=== PATIENT | female | born 1950 | race Caucasian/White ===

== ENCOUNTER 2018-09-10 10:12 | Emergency (ER) | payer BC, MEDICARE, OTHER ==
[2018-09-10 10:28] VITALS: O2SAT 98
[2018-09-10] MEDS ORDERED: MORPHINE SULFATE 4 MG INJ IV ONE (10:41)
[2018-09-10] MEDS ORDERED: Zofran 4 MG/2 ML VIAL IV ONE (10:41)
--- NOTE | 2018-09-10 10:45 | ERPHSYRPT ---
- History of Present Illness Time Seen by Provider: 09/10/18 10:37 Source: patient Exam Limitations: no limitations Patient Subjective Stated Complaint: "I SLIPPED ON THE ICE AND NOW MY LEFT SHOULDER HURTS AND I CAN'T MOVE MY LEFT ARM RIGHT" Triage Nursing Assessment: PINK/WARM/DRY, RESP EASY, A&OX4, STEADY GAIT, LIMITED ROM TO LEFT ARM AND DEFORMITY NOTED. Physician History: 68-year-old white female arrives with complaint of pain in her left upper arm and the left shoulder since falling 1 hour prior to arrival. Patient states she slipped on the ice. She denies any other complaints past medical history includes cataracts, diabetes type 2, hypothyroidism, arrhythmia, coronary artery disease, hypercholesterolemia, high blood pressure, myocardial infarction, GERD, GI bleed , renal disease, anxiety, depression, osteopenia, anemia, GI bleed, skin cancer with radiation treatment. Past surgical history includes cataracts, CABG, cardiac stent, appendectomy, hernia repair, tubal ligation, colonoscopy Occurred: this morning (1 hour ago) Method of Injury: fell (slipped on ice) Extremities Pain Location: shoulder: left, arm: left Modifying Factors: Improves With: nothing Associated Symptoms: none Allergies/Adverse Reactions: Penicillins Allergy (Mild, Verified 09/10/18 10:28) Hives Home Medications: Atorvastatin Calcium [Lipitor] 40 mg PO DAILY 02/06/14 [History] Ca/D3/Mag Ox/Zinc/Supervisor Record Press/Adolfo/Bor [Calcium 600+D3 Plus Caplet] 1 each PO BID [History] Krill/Om3/Dha/Epa/Om6/Lip/Astx [Krill Oil 1,000 mg Softgel] 1 each PO DAILY [History] Multivitamins-Min/FA/Ginkgo [Women's 50+ Daily Formula Tab] 1 each PO DAILY [History] Bupropion HCl 150 mg Sr [Wellbutrin SR 150 MG] 1 tab PO DAILY 12/23/15 [ History] Nitroglycerin 0.4 mg (Ed) [Nitrostat 0.4 MG (ED)] 1 tab SL UD 06/24/16 [ History] Darbepoetin Horace 60 Mcg [Aranesp 60 Mcg Syringe] 60 mcg IJ DIRECTIONS UNKNOWN 09/06/16 [History] Allopurinol 100 mg [Zyloprim 100 mg] 100 mg PO DAILY 05/16/17 [History] Diltiazem HCl [Cartia Xt] 120 mg PO BID 05/16/17 [History] Gabapentin [Neurontin] 300 mg PO HS 05/16/17 [History] Ascorbic Acid [Vitamin C] 1,000 mg PO DAILY 10/18/17 [History] Aspirin EC 81 mg [Ecotrin 81 mg] 81 mg PO DAILY 10/18/17 [History] Enalapril Maleate 10 mg [Vasotec 10 MG] 2.5 mg PO DAILY 10/18/17 [History] Famotidine 20 mg [Pepcid 20 MG] 20 mg PO BID 10/18/17 [History] Insulin Aspart [Novolog Flexpen] 0 unit SQ UD 10/18/17 [History] Isosorbide Mononitrate 30 mg [Imdur 30 MG] 30 mg PO DAILY 10/18/17 [History ] Insulin Glargine [Lantus Insulin] 20 unit SQ QHS 03/13/18 [History] Levothyroxine Sodium 88 Mcg [Synthroid 88 Mcg] 88 mcg PO DAILY 03/13/18 [ History] HydrALAzine HCL 25 MG TAB [Apresoline 25 MG TABLET] 50 mg PO TID 07/04/18 [History] Hx Tetanus, Diphtheria Vaccination/Date Given: Yes Hx Influenza Vaccination/Date Given: Yes Hx Pneumococcal Vaccination/Date Given: Yes Immunizations Up to Date: Yes - Review of Systems Constitutional: No Fever, No Chills Eyes: No Symptoms Ears, Nose, & Throat: No Symptoms Respiratory: No Cough, No Dyspnea Cardiac: No Chest Pain, No Edema, No Syncope Abdominal/Gastrointestinal: No Abdominal Pain, No Nausea, No Vomiting, No Diarrhea Genitourinary Symptoms: No Dysuria Musculoskeletal: Fall, Other (left shoulder and arm pain) Skin: No Rash Neurological: No Dizziness, No Focal Weakness, No Sensory Changes Psychological: No Symptoms Endocrine: No Symptoms All Other Systems: Reviewed and Negative - Past Medical History Pertinent Past Medical History: Yes Neurological History: Peripheral Neuropathy ENT History: Cataracts Cardiac History: Arrhythmia, Coronary Artery Disease, High Cholesterol, Hypertension, Myocardial Infarction ([place]) Respiratory History: No Pertinent History Endocrine Medical History: Diabetes Type II, Hypothyroidism Musculoskeletal History: Arthritis, Other GI Medical History: GERD, GI Bleed History: Renal Disease Psycho-Social History: Anxiety, Depression Female Reproductive Disorders: No Pertinent History Other Medical History: osteopenia, and anemia. several blood transfusions. bleed in colon 2017. skin cancer with radiation - Past Surgical History Past Surgical History: Yes Neuro Surgical History: No Pertinent History Cardiac: CABG, Cardiac Catheterization, Cardiac Stent Respiratory: No Pertinent History Gastrointestinal: Appendectomy, Hernia Repair Genitourinary: No Pertinent History Musculoskeletal: Orthopedic Surgery Female Surgical History: Tubal Ligation Other Surgical History: hand surgery bilateral, colonoscopy (found leakage of blood) per pt. - Social History Smoking Status: Former smoker How long have you smoked: 25 years Exposure to second hand smoke: No Drug Use: none Patient Lives Alone: Yes - Female History Hx Last Menstrual Period: POST MENOPAUSAL Hx Now: No - Nursing Vital Signs Nursing Vital Signs: Initial Vital Signs Temperature 98.6 F 09/10/18 10:17 Pulse Rate 62 09/10/18 10:17 Respiratory Rate 16 09/10/18 10:17 Blood Pressure 122/66 09/10/18 10:17 O2 Sat by Pulse Oximetry 98 09/10/18 10:17 Pain Scale Pain Intensity 6 - Physical Exam General Appearance: mild distress, moderate distress Eyes, Ears, Nose, Throat Exam: moist mucous membranes Neck Exam: non-tender, supple, full range of motion Cardiovascular/Respiratory Exam: chest non-tender, normal breath sounds, regular rate/rhythm, no respiratory distress Abdominal Exam: non-tender, No guarding Back Exam: normal inspection, No vertebral tenderness Shoulder Exam: No normal inspection (left shoulder tender with palpation, decreased range of motion left shoulder secondary to pain.) Elbow/Forearm Exam: normal inspection, No normal ROM (decreased RPM left elbow secondary to left shoulder pain) Wrist Exam: normal inspection, normal ROM, No swelling Hand Exam: normal inspection, non-tender, no evidence of injury, normal ROM Neuro/Tendon Exam: normal sensation, normal motor functions Mental Status Exam: alert, oriented x 3, cooperative Skin Exam: normal color, warm, dry SpO2 Interpretation: normal (98%) SpO2: 98 - Course Nursing assessment & vital signs reviewed: Yes - Radiology Exams Left Humerus X-ray Interpretation: Discussed w/ radiologist (x-ray left humerus: Impression: Impacted and comminuted humeral head fracture. Elsewhere mild osteopenia and mild A, C degenerative arthropathy. No other bony, articular, or soft tissue abnormalities) Left Shoulder X-ray Interpretation: Discussed w/ radiologist (x-ray left shoulder: Impression : Impacted and comminuted humeral head fracture. Elsewhere mild osteopenia and mild A, C degenerative arthropathy. No other bony, articular, or soft tissue abnormalities.) Ordered Tests: Active Orders 24 hr Category Date Time Status IV Insertion STAT Care 09/10/18 10:40 Active Immobilizer STAT Care 09/10/18 11:23 Active HUMERUS Stat Exams 09/10/18 11:04 Completed SHOULDER Stat Exams 09/10/18 10:33 Completed Medication Summary Discontinued Medications Generic Name Dose Route Start Last Admin Trade Name Freq PRN Reason Stop Dose Admin Morphine Sulfate 4 mg 09/10/18 10:41 09/10/18 10:50 Morphine Sulfate 4 Mg Inj IV 09/10/18 10:42 4 mg STAT ONE Administration Morphine Sulfate Confirm 09/10/18 10:46 Morphine Sulfate 4 Mg Inj Administered 09/10/18 10:47 Dose 4 mg .ROUTE .STK-MED ONE Morphine Sulfate 2 mg 09/10/18 12:18 Morphine Sulfate 2 Mg Inj IV 09/10/18 12:19 STAT ONE Ondansetron HCl 4 mg 09/10/18 10:41 09/10/18 10:50 Zofran 4 Mg/2 Ml Vial IV 09/10/18 10:42 4 mg STAT ONE Administration Ondansetron HCl Confirm 09/10/18 10:46 Zofran 4 Mg/2 Ml Vial Administered 09/10/18 10:47 Dose 4 mg .ROUTE .STK-MED ONE - Progress Progress: improved Progress Note: 09/10/18 12:19 68-year-old white female arrives with complaint of pain in her left shoulder and upper arm after falling on the ice 1 hour prior to arrival/ Patient with decreased range of motion to the left shoulder secondary to pain Patient with the bilateral radial and ulnar pulses intact 2 over 4 full range of motion all fingers good capillary refill to all fingers decreased range of motion to the left elbow secondary pain and shoulder. Patient's x-ray of her left humerus and shoulder are remarkable for impacted and comminuted humeral head fracture. Patient was given of morphine 4 mg and then 2 mg IV also Zofran 4 mg IV. I've discussed patient's fracture with Dr. Schaeffer through [facility]. Left shoulder immobilizer has been placed. Will go ahead and write for [place] for pain. Patient is ice and elevate her left shoulder follow-up with [facility] tomorrow morning between 8 AM and 9 AM. She is return for acute distress or for severe symptoms. - Departure Time of Disposition: 12:21 Departure Disposition: Home Clinical Impression: Humeral head fracture Qualifiers: Encounter type: initial encounter Fracture type: closed Laterality: left Qualified Code(s): S42.292A - Other displaced fracture of upper end of left humerus, initial encounter for closed fracture Condition: Fair Critical Care Time: No Referrals: YOU CHAVEZ [Primary Care Provider] - Additional Instructions: Return home. Leave immobilizer in place left shoulder. Ice to left shoulder 24-48 hrs.. [place] as prescribed. Follow-up with [facility] tomorrow morning 8 AM. Return for acute distress or for severe symptoms, Prescriptions: Hydrocodone/APAP 5-325 Tab^^^ [[place] 5-325 Tablet^^^] 1 - 2 tab PO Q4HPRN PRN # 12 tablet MDD 6 PRN Reason: Pain
[2018-09-10] MEDS ORDERED: MORPHINE SULFATE 4 MG INJ ONE (10:46)
[2018-09-10] MEDS ORDERED: Zofran 4 MG/2 ML VIAL ONE (10:46)
--- NOTE | 2018-09-10 11:11 | XRAY ---
Indication: Pain following fall. Comparison: None 2 views of the left shoulder demonstrates impacted and comminuted humeral head fracture. Elsewhere mild osteopenia and mild AC degenerative arthropathy. No other bony, articular, or soft tissue abnormalities.
--- NOTE | 2018-09-10 11:13 | XRAY ---
Indication: Pain following fall. Comparison: None 2 views of the left humerus demonstrates impacted and comminuted humeral head fracture. Elsewhere mild osteopenia and mild AC degenerative arthropathy. No other bony, articular, or soft tissue abnormalities.
[2018-09-10] MEDS ORDERED: MORPHINE SULFATE 2 MG INJ IV ONE (12:18)
[2018-09-10] MEDS ORDERED: MORPHINE SULFATE 2 MG INJ ONE (12:29)
[2018-09-10 12:53] VITALS: BP 118/62; PULSE 60
== END 2018-09-10 13:01 | disposition home or self-care (01) ==
LOC: ED 10:12
DX: S42.292A Other displaced fracture of upper end of left humerus, initial encounter for closed fracture (principal); M25.512 Pain in left shoulder; W00.0XXA Fall on same level due to ice and snow, initial encounter; G62.9 Polyneuropathy, unspecified; I25.810 Atherosclerosis of coronary artery bypass graft(s) without angina pectoris; I10 Essential (primary) hypertension; I25.2 Old myocardial infarction; E11.9 Type 2 diabetes mellitus without complications; E03.9 Hypothyroidism, unspecified; K21.9 Gastro-esophageal reflux disease without esophagitis; F41.8 Other specified anxiety disorders; Z85.038 Personal history of other malignant neoplasm of large intestine; E78.00 Pure hypercholesterolemia, unspecified; N28.9 Disorder of kidney and ureter, unspecified; M85.80 Other specified disorders of bone density and structure, unspecified site; Z79.899 Other long term (current) drug therapy
CPT/HCPCS: 73030; 73060; 96374; 96375; 96376; 99284; J2270; J2405

== ENCOUNTER 2019-08-15 12:20 | Emergency (ER) | payer MEDICARE, OTHER ==
[2019-08-15] MEDS ORDERED: Sodium Chloride 0.9% 1000 ML 1,000 ML IV STA (13:42)
[2019-08-15] MEDS ORDERED: Sodium Chloride 0.9% 1000 ML 1,000 ML ONE (13:50)
--- NOTE | 2019-08-15 14:17 | XRAY ---
Indication: Dizziness. Hypotension. Comparison: None Portable chest demonstrates cardiomegaly with CABG surgery partially obscuring the left lung base. Remaining lungs are clear. Bony thorax intact with mild osteopenia, degenerative changes, and old left humeral fracture. Impression: Cardiomegaly. Negative for acute pneumonic process or CHF.
--- NOTE | 2019-08-15 14:37 | ERPHSYRPT ---
- History of Present Illness Time Seen by Provider: 08/15/19 13:45 Source: patient Exam Limitations: no limitations Patient Subjective Stated Complaint: pt here for low b/p for two days by her home monitor, she also states she has been more tried last few days Triage Nursing Assessment: pt alert, walked in, skin w/d/p. resp easy, no edema. Physician History: Hypotension yesterday and this morning with mild dizziness this morning. Patient has not changed any medications recently. Patient has not had any fevers, vomiting, diarrhea, abdominal pain, back pain or chest pain. Timing/Duration: yesterday Severity: moderate Modifying Factors: Improves With: other (standing) Associated Symptoms: No nausea, No vomiting, No abdominal pain, No shortness of breath, No heartburn, No diaphoresis, No cough, No chills, No chest pain, No fever, No headaches, No loss of appetite, No malaise, No rash, No syncope, No seizure, No weakness Allergies/Adverse Reactions: Penicillins Allergy (Mild, Verified 08/15/19 12:41) Hives Home Medications: Atorvastatin Calcium [Lipitor] 40 mg PO DAILY 02/06/14 [History] Ca/D3/Mag Ox/Zinc/Newsperson/Adolfo/Bor [Calcium 600+D3 Plus Caplet] 1 each PO BID [History] Krill/Om3/Dha/Epa/Om6/Lip/Astx [Krill Oil 1,000 mg Softgel] 1 each PO DAILY [History] Multivitamins-Min/FA/Ginkgo [Women's 50+ Daily Formula Tab] 1 each PO DAILY [History] Bupropion HCl 150 mg Sr [Wellbutrin SR 150 MG] 1 tab PO DAILY 12/23/15 [ History] Nitroglycerin 0.4 mg (Ed) [Nitrostat 0.4 MG (ED)] 1 tab SL UD 06/24/16 [ History] Allopurinol 100 mg [Zyloprim 100 mg] 100 mg PO DAILY 05/16/17 [History] Diltiazem HCl [Cartia Xt] 360 mg PO DAILY 05/16/17 [History] Gabapentin [Neurontin] 300 mg PO HS 05/16/17 [History] Ascorbic Acid [Vitamin C] 1,000 mg PO DAILY 10/18/17 [History] Aspirin EC 81 mg [Ecotrin 81 mg] 81 mg PO DAILY 10/18/17 [History] Enalapril Maleate 10 mg [Vasotec 10 MG] 2.5 mg PO DAILY 10/18/17 [History] Famotidine 20 mg [Pepcid 20 MG] 20 mg PO BID 10/18/17 [History] Insulin Aspart [Novolog Flexpen] 0 unit SQ UD 10/18/17 [History] Isosorbide Mononitrate 30 mg [Imdur 30 MG] 30 mg PO DAILY 10/18/17 [History ] Insulin Glargine [Lantus Insulin] 25 unit SQ QHS 03/13/18 [History] Levothyroxine Sodium 88 Mcg [Synthroid 88 Mcg] 75 mcg PO DAILY 03/13/18 [ History] Bimatoprost 0.01% [Lumigan 0.01% 2.5 ml] 2.5 ml OP HS 01/09/19 [History] Brimonidine Tartrate [Alphagan P] 5 ml OP BID 01/09/19 [History] Furosemide 20 mg [Lasix 20 mg] 40 mg PO DAILY 02/06/19 [History] Clopidogrel Bisulfate 75 mg [PLAVIX 75 MG Tablet] 75 mg PO DAILY 08/15/19 [History] Hx Tetanus, Diphtheria Vaccination/Date Given: Yes Hx Influenza Vaccination/Date Given: Yes Hx Pneumococcal Vaccination/Date Given: Yes Immunizations Up to Date: Yes - Review of Systems Constitutional: Fatigue, No Fever, No Chills Eyes: No Discharge, No Vision Changes Ears, Nose, & Throat: No Ear Pain, No Nose Congestion, No Mouth Swelling, No Throat Pain, No Throat Swelling, No Painful Swallowing Respiratory: No Cough, No Dyspnea, No Dyspnea on Exertion (AVILES), No Wheezing Cardiac: No Chest Pain, No Edema, No Syncope Abdominal/Gastrointestinal: No Abdominal Pain, No Nausea, No Vomiting, No Diarrhea, No Hematemesis, No Hematochezia, No Melena Genitourinary Symptoms: No Dysuria, No Frequency, No Hematuria, No Urgency, No Flank Pain, No Vaginal Bleeding Musculoskeletal: No Back Pain, No Neck Pain Skin: No Rash Neurological: No Dizziness, No Focal Weakness, No Headache, No Parasthesia, No Sensory Changes Psychological: No Anxiety, No Emotional Lability Endocrine: No Symptoms Hematologic/Lymphatic: No Easy Bleeding, No Easy Bruising All Other Systems: Reviewed and Negative - Past Medical History Pertinent Past Medical History: Yes Neurological History: No Pertinent History ENT History: Cataracts Cardiac History: Arrhythmia, Coronary Artery Disease, High Cholesterol, Hypertension Respiratory History: CHF Endocrine Medical History: Diabetes Type II, Hypothyroidism, Other Musculoskeletal History: Fractures, Other GI Medical History: GERD, GI Bleed History: Renal Disease Psycho-Social History: Anxiety, Depression Female Reproductive Disorders: No Pertinent History Other Medical History: SKIN CA REMOVAL FACE 10/29 FOLLOWED BY RADIATION TREATMENTS ,anemia. 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 BILATERAL CARPAL TUNNEL WITH HX OF RELEASES. CABG X 4 09/2001; STENT PLACEMENT 11/2015. SX HX: ORIF, JUL[facility], CABG, TRIGGER FINGER RELEASE 06/16, HERNIA REPAIR ABDOMINAL, A fib - Past Surgical History Past Surgical History: Yes Neuro Surgical History: No Pertinent History Cardiac: CABG, Cardiac Catheterization, Cardiac Stent Respiratory: No Pertinent History Gastrointestinal: Appendectomy, Hernia Repair Genitourinary: No Pertinent History Musculoskeletal: Orthopedic Surgery Female Surgical History: Tubal Ligation Other Surgical History: hand surgery bilateral, colonoscopy (found leakage of blood) per pt. left shoulder repair, sep 2018., watchman plced in jun 2019 - Social History Smoking Status: Former smoker How long have you smoked: 25 years Exposure to second hand smoke: No Drug Use: none Patient Lives Alone: Yes - Female History Hx Last Menstrual Period: post Hx Now: No - Nursing Vital Signs Nursing Vital Signs: Initial Vital Signs Temperature 98.7 F 08/15/19 12:35 Pulse Rate 105 H 08/15/19 12:35 Respiratory Rate 18 08/15/19 12:35 Blood Pressure 113/57 08/15/19 12:35 O2 Sat by Pulse Oximetry 99 08/15/19 12:35 Pain Scale Pain Intensity 0 - Physical Exam General Appearance: no apparent distress, alert Eye Exam: PERRL/EOMI, eyes nml inspection Ears, Nose, Throat Exam: normal ENT inspection, TMs normal, pharynx normal, moist mucous membranes Neck Exam: normal inspection, non-tender, supple, full range of motion Respiratory Exam: normal breath sounds, lungs clear, No respiratory distress Cardiovascular Exam: regular rate/rhythm, normal heart sounds, normal peripheral pulses Gastrointestinal/Abdomen Exam: soft, normal bowel sounds, No tenderness, No mass Back Exam: normal inspection, normal range of motion, No CVA tenderness, No vertebral tenderness Extremity Exam: normal inspection, normal range of motion, pelvis stable Neurologic Exam: alert, oriented x 3, cooperative, normal mood/affect, nml cerebellar function, nml station & gait, sensation nml, No motor deficits Skin Exam: normal color, warm, dry, No rash Lymphatic Exam: No adenopathy SpO2: 98 - Course Nursing assessment & vital signs reviewed: Yes EKG Interpreted by Me: RATE, NORMAL AXIS, NORMAL INTERVALS, Right Bundle Branch Block, NORMAL ST-T, Other (no change in comparison from 12/29/2017) - Radiology Exams Chest X-ray Interpretation: Other (per radiologist interpretation: Portable chest demonstrates cardiomegaly with CABG surgery per sister in the left lung base. Remaining lungs are clear. Bony thorax intact with mild osteopenia, degenerative changes and old left humeral fracture. Overall impression: Cardiomegaly. Negative for acute pneumonic process or CHF.) Ordered Tests: Active Orders 24 hr Category Date Time Status EKG-ER Only STAT Care 08/15/19 13:42 Active IV Insertion STAT Care 08/15/19 13:42 Active Orthostatic Vital Signs STAT Care 08/15/19 13:44 Active CHEST 1 VIEW (PORTABLE) Stat Exams 08/15/19 13:44 Completed AMYLASE Stat Lab 08/15/19 14:20 Completed BLOOD CULTURE Stat Lab 08/15/19 14:27 Received CBC W DIFF Stat Lab 08/15/19 14:20 Completed CMP Stat Lab 08/15/19 14:20 Completed CULTURE,URINE Stat Lab 08/15/19 13:44 Ordered LIPASE Stat Lab 08/15/19 14:20 Completed Lactic Acid Stat Lab 08/15/19 14:09 Completed MAGNESIUM Stat Lab 08/15/19 14:20 Completed PROTIME WITH INR Stat Lab 08/15/19 14:20 Completed TROPONIN Q3H Lab 08/15/19 14:20 Completed TROPONIN Q3H Lab 08/15/19 16:45 Ordered TROPONIN Q3H Lab 08/15/19 19:45 Ordered TROPONIN Q3H Lab 08/15/19 22:45 Ordered TROPONIN Q3H Lab 08/16/19 01:45 Ordered UA W/RFX UR CULTURE Stat Lab 08/15/19 13:58 Completed Medication Summary Discontinued Medications Generic Name Dose Route Start Last Admin Trade Name Freq PRN Reason Stop Dose Admin Sodium Chloride 1,000 mls @ 999 mls/hr 08/15/19 13:42 08/15/19 14:12 Sodium Chloride 0.9% 1000 Ml IV 08/15/19 14:42 999 mls/hr .Q1H1M STA Administration Sodium Chloride Confirm 08/15/19 13:50 Sodium Chloride 0.9% 1000 Ml Administered 08/15/19 13:51 Dose 1,000 mls @ ud .ROUTE .STK-MED ONE Ceftriaxone Sodium/Dextrose 1 g in 50 mls @ 100 mls/hr 08/15/19 14:48 15:11 Rocephin 1 Gm-D5w 50 Ml Bag IV 08/15/19 15:17 100 ml/hr STAT STA 100 mls/hr Administration Ceftriaxone Sodium/Dextrose Confirm 08/15/19 15:09 Rocephin 1 Gm-D5w 50 Ml Bag Administered 08/15/19 15:10 Dose 1 g in 50 mls @ ud IV .STK-MED ONE Lab/Rad Data: Laboratory Result Diagrams 08/15/19 14:20 08/15/19 14:20 Laboratory Results 08/15/19 08/15/19 08/15/19 Range/Units 14:20 14:20 14:20 WBC (4.0-10.5) K/mm3 RBC (4.1-5.4) M/mm3 Hgb (12.0-16.0) gm/dl Hct (35-47) % MCV (78-100) fl MCH (26-32) pg MCHC (32-36) g/dl RDW (11.5-14.0) % Plt Count (150-450) K/mm3 MPV (6-9.5) fl Gran % (36.0-66.0) % Eos # (Auto) (0-0.5) Absolute Lymphs (auto) (1.0-4.6) Absolute Monos (auto) (0.0-1.3) Lymphocytes % (24.0-44.0) % Monocytes % (0.0-12.0) % Eosinophils % (0.00-5.0) % Basophils % (0.0-0.4) % Absolute Granulocytes (1.4-6.9) Basophils # (0-0.4) PT 13.8 H (9.95-12.35) SECONDS INR 1.22 (0.8-3.0) Sodium (137-145) mmol/L Potassium (3.5-5.1) mmol/L Chloride (98-107) mmol/L Carbon Dioxide (22-30) mmol/L Anion Gap (5-15) MEQ/L BUN (7-17) mg/dL Creatinine (0.52-1.04) mg/dL Estimated GFR ML/MIN Glucose (74-106) mg/dL Lactic Acid (0.4-2.0) Calcium (8.4-10.2) mg/dL Magnesium 2.4 H (1.6-2.3) mg/dL Total Bilirubin (0.2-1.3) mg/dL AST (14-36) U/L ALT (0-35) U/L Alkaline Phosphatase (38-126) U/L Troponin I < 0.012 (0.000-0.034) ng/mL Serum Total Protein (6.3-8.2) g/dL Albumin (3.5-5.0) g/dL Amylase (30-110) U/L Lipase (23-300) U/L Urine Color (YELLOW) Urine Appearance (CLEAR) Urine pH (5-6) Ur Specific [place] (1.005-1.025) Urine Protein (Negative) Urine Ketones (NEGATIVE) Urine Blood (0-5) [place]/ul Urine Nitrite (NEGATIVE) Urine Bilirubin (NEGATIVE) Urine Urobilinogen (0-1) mg/dL Ur Leukocyte Esterase (NEGATIVE) Urine WBC (Auto) (0-5) /HPF Urine RBC (Auto) (0-2) /HPF U Epithel Cells (Auto) (FEW) /HPF Urine Bacteria (Auto) (NEGATIVE) /HPF Urine Mucus (Auto) (NEGATIVE) /HPF Urine Culture Reflexed (NO) Urine Glucose (NEGATIVE) mg/dL 08/15/19 08/15/19 08/15/19 Range/Units 14:20 14:20 14:09 WBC 8.3 (4.0-10.5) K/mm3 RBC 2.24 L (4.1-5.4) M/mm3 Hgb 7.0 L (12.0-16.0) gm/dl Hct 22.7 L (35-47) % MCV 101.3 H (78-100) fl MCH 31.3 (26-32) pg MCHC 30.8 L (32-36) g/dl RDW 16.1 H (11.5-14.0) % Plt Count 208 (150-450) K/mm3 MPV 10.3 H (6-9.5) fl Gran % 78.9 H (36.0-66.0) % Eos # (Auto) 0.20 (0-0.5) Absolute Lymphs (auto) 1.03 (1.0-4.6) Absolute Monos (auto) 0.46 (0.0-1.3) Lymphocytes % 12.5 L (24.0-44.0) % Monocytes % 5.6 (0.0-12.0) % Eosinophils % 2.4 (0.00-5.0) % Basophils % 0.6 (0.0-0.4) % Absolute Granulocytes 6.51 (1.4-6.9) Basophils # 0.05 (0-0.4) PT (9.95-12.35) SECONDS INR (0.8-3.0) Sodium 137 (137-145) mmol/L Potassium 4.2 (3.5-5.1) mmol/L Chloride 101 (98-107) mmol/L Carbon Dioxide 26 (22-30) mmol/L Anion Gap 14.3 (5-15) MEQ/L BUN 93 H (7-17) mg/dL Creatinine 2.71 H (0.52-1.04) mg/dL Estimated GFR 18.5 ML/MIN Glucose 119 H (74-106) mg/dL Lactic Acid 1.4 (0.4-2.0) Calcium 9.5 (8.4-10.2) mg/dL Magnesium (1.6-2.3) mg/dL Total Bilirubin 0.40 (0.2-1.3) mg/dL AST 23 (14-36) U/L ALT 14 (0-35) U/L Alkaline Phosphatase 130 H (38-126) U/L Troponin I (0.000-0.034) ng/mL Serum Total Protein 6.9 (6.3-8.2) g/dL Albumin 3.6 (3.5-5.0) g/dL Amylase 69 (30-110) U/L Lipase 165 (23-300) U/L Urine Color (YELLOW) Urine Appearance (CLEAR) Urine pH (5-6) Ur Specific [place] (1.005-1.025) Urine Protein (Negative) Urine Ketones (NEGATIVE) Urine Blood (0-5) [place]/ul Urine Nitrite (NEGATIVE) Urine Bilirubin (NEGATIVE) Urine Urobilinogen (0-1) mg/dL Ur Leukocyte Esterase (NEGATIVE) Urine WBC (Auto) (0-5) /HPF Urine RBC (Auto) (0-2) /HPF U Epithel Cells (Auto) (FEW) /HPF Urine Bacteria (Auto) (NEGATIVE) /HPF Urine Mucus (Auto) (NEGATIVE) /HPF Urine Culture Reflexed (NO) Urine Glucose (NEGATIVE) mg/dL 08/15/19 Range/Units 13:58 WBC (4.0-10.5) K/mm3 RBC (4.1-5.4) M/mm3 Hgb (12.0-16.0) gm/dl Hct (35-47) % MCV (78-100) fl MCH (26-32) pg MCHC (32-36) g/dl RDW (11.5-14.0) % Plt Count (150-450) K/mm3 MPV (6-9.5) fl Gran % (36.0-66.0) % Eos # (Auto) (0-0.5) Absolute Lymphs (auto) (1.0-4.6) Absolute Monos (auto) (0.0-1.3) Lymphocytes % (24.0-44.0) % Monocytes % (0.0-12.0) % Eosinophils % (0.00-5.0) % Basophils % (0.0-0.4) % Absolute Granulocytes (1.4-6.9) Basophils # (0-0.4) PT (9.95-12.35) SECONDS INR (0.8-3.0) Sodium (137-145) mmol/L Potassium (3.5-5.1) mmol/L Chloride (98-107) mmol/L Carbon Dioxide (22-30) mmol/L Anion Gap (5-15) MEQ/L BUN (7-17) mg/dL Creatinine (0.52-1.04) mg/dL Estimated GFR ML/MIN Glucose (74-106) mg/dL Lactic Acid (0.4-2.0) Calcium (8.4-10.2) mg/dL Magnesium (1.6-2.3) mg/dL Total Bilirubin (0.2-1.3) mg/dL AST (14-36) U/L ALT (0-35) U/L Alkaline Phosphatase (38-126) U/L Troponin I (0.000-0.034) ng/mL Serum Total Protein (6.3-8.2) g/dL Albumin (3.5-5.0) g/dL Amylase (30-110) U/L Lipase (23-300) U/L Urine Color YELLOW (YELLOW) Urine Appearance SLIGHTLY CLOUDY (CLEAR) Urine pH 6.0 (5-6) Ur Specific [place] 1.008 (1.005-1.025) Urine Protein NEGATIVE (Negative) Urine Ketones NEGATIVE (NEGATIVE) Urine Blood NEGATIVE (0-5) [place]/ul Urine Nitrite NEGATIVE (NEGATIVE) Urine Bilirubin NEGATIVE (NEGATIVE) Urine Urobilinogen NEGATIVE (0-1) mg/dL Ur Leukocyte Esterase LARGE (NEGATIVE) Urine WBC (Auto) >100 (0-5) /HPF Urine RBC (Auto) 6-10 (0-2) /HPF U Epithel Cells (Auto) NONE (FEW) /HPF Urine Bacteria (Auto) MODERATE (NEGATIVE) /HPF Urine Mucus (Auto) SLIGHT (NEGATIVE) /HPF Urine Culture Reflexed ORDERED SEPARATELY (NO) Urine Glucose NEGATIVE (NEGATIVE) mg/dL - Progress Progress: unchanged Progress Note: 08/15/19 15:45 Patient is feeling the same. Reviewed with her lab results and she states she had a similar problem in 2017 where she had bleeding from her colon that required intervention. Dr Miranda is her GI doctor and Dr Bartlett is her Retail Manager. Discussed with Dr.: Other (Discussed the patient with Dr Noel, ED attending at [facility] at 16:00. Dr Noel accepted the patient for transfer ) Will see patient in: ED (at [facility] in [place], [place]) Counseled pt/family regarding: lab results, diagnosis, need for follow-up, rad results, smoking cessation - Departure Departure Disposition: Transfer ([facility] in [place], [place]) Clinical Impression: Acute blood loss anemia, Dizziness, Acute on chronic renal insufficiency, Acute lower UTI Hypotension Qualifiers: Hypotension type: other hypotension type Qualified Code(s): I95.89 - Other hypotension Condition: Fair Critical Care Time: No Referrals: YOU CHAVEZ [Primary Care Provider] -
[2019-08-15 14:44] LABS: Appearance SLIGHTLY CLOUDY (CLEAR); Bacteria MODERATE /HPF (NEGATIVE); Bilirubin NEGATIVE (NEGATIVE); Blood NEGATIVE Ery/ul (0-5); Glucose NEGATIVE (NEGATIVE); Ketones NEGATIVE (NEGATIVE); Leukocyte Esterase LARGE (NEGATIVE); Mucus SLIGHT /HPF (NEGATIVE); Nitrite NEGATIVE (NEGATIVE); Protein,Urine Dip NEGATIVE (Negative); Specific Gravity 1.008 (1.005-1.025); Urobilinogen NEGATIVE mg/dL (0-1); WBC >100 /HPF (0-5)
[2019-08-15 14:44] LABS: INR 1.22 (0.8-3.0); PROTIME 13.8 SECONDS (9.95-12.35)
[2019-08-15 14:45] LABS: Absolute Neutrophil Ct (ANC) 6.51 (1.4-6.9); BASOPHIL % 0.6 % (0.0-0.4); Basophil (Absolute #) 0.05 (0-0.4); Eosinophil % 2.4 % (0.00-5.0); Hematocrit 22.7 % (35-47); Lymphocyte (Absolute #) 1.03 (1.0-4.6); Lymphocytes % 12.5 % (24.0-44.0); Mean Cell Volume 101.3 fl (78-100); Mean Corpuscular Hemoglobin 31.3 pg (26-32); Mean Corpuscular Hgb Concent. 30.8 g/dl (32-36); Mean Platelet Volume 10.3 fl (6-9.5); Monocyte (Absolute #) 0.46 (0.0-1.3); Monocytes % 5.6 % (0.0-12.0); Neutrophil % 78.9 % (36.0-66.0); Platelet Count 208 K/mm3 (150-450); Red Blood Count 2.24 M/mm3 (4.1-5.4); Red Cell Distribution Width 16.1 % (11.5-14.0); White Blood Count 8.3 K/mm3 (4.0-10.5)
[2019-08-15] MEDS ORDERED: ROCEPHIN 1 Gm-D5w 50 ml Bag** 1 G/50 ML IVPB IV STA (14:48)
[2019-08-15 14:49] LABS: ALBUMIN 3.6 g/dL (3.5-5.0); ANION GAP 14.3 MEQ/L (5-15); BILIRUBIN,TOTAL 0.4 mg/dL (0.2-1.3); Calcium 9.5 mg/dL (8.4-10.2); Creatinine 1 2.71 mg/dL (0.52-1.04); Potassium 4.2 mmol/L (3.5-5.1); Total Protein 6.9 g/dL (6.3-8.2)
[2019-08-15] MEDS ORDERED: ROCEPHIN 1 Gm-D5w 50 ml Bag** 1 G/50 ML IVPB IV ONE (15:09)
[2019-08-15 16:03] VITALS: BP 120/69; PULSE 86
[2019-08-15 16:17] VITALS: O2SAT 98
== END 2019-08-15 17:12 | disposition short-term general hospital (02) ==
LOC: ED 12:20
DX: D62 Acute posthemorrhagic anemia (principal); R42 Dizziness and giddiness; I12.9 Hypertensive chronic kidney disease with stage 1 through stage 4 chronic kidney disease, or unspecified chronic kidney disease; N18.9 Chronic kidney disease, unspecified; N28.9 Disorder of kidney and ureter, unspecified; N39.0 Urinary tract infection, site not specified; I95.89 Other hypotension; Z79.899 Other long term (current) drug therapy
CPT/HCPCS: 36000; 36415; 71045; 80053; 81001; 82150; 83605; 83690; 83735; 84484; 85025; 85610; 87040; 87077; 87086; 87186; 96360; 96365; 99285; J0696